=== PATIENT | female | born 1980 | race Caucasian/White ===

== ENCOUNTER 2016-10-22 13:39 | Outpatient (CLI) | payer MEDICAID ==
--- NOTE | 2016-10-22 16:42 | XRAY Report ---
TWO VIEW THORACIC SPINE: 10/22/2016 CLINICAL INDICATION: Back pain. Frontal and lateral views of the thoracic spine demonstrate normal height and alignment of the verteb ral bodies. The disk spaces are preserved. There is no evidence of fracture. No paraspinal hematom a is seen. IMPRESSION: NORMAL THORACIC SPINE. JOB #: [id number] EXT JOB #:[id number]
--- NOTE | 2016-10-22 16:45 | XRAY Report ---
THREE VIEW CERVICAL SPINE: 10/22/2016 CLINICAL INDICATION: Pain. AP, lateral, odontoid views of the cervical spine demonstrate straightening of the normal cervical lo rdosis. There is no evidence of fracture or subluxation. The prevertebral soft tissues are unremark able. IMPRESSION: STRAIGHTENING OF THE NORMAL CERVICAL LORDOSIS. NO EVIDENCE OF FRACTURE. JOB #: [id number] EXT JOB #:[id number]
== END 2016-10-22 13:40 | disposition home or self-care (01) ==
LOC: DI.N 13:39
PROVIDERS: ATTEND Family Medicine
DX: M54.9 Dorsalgia, unspecified (principal)
CPT/HCPCS: 72040; 72070

== ENCOUNTER 2017-05-04 12:44 | Outpatient (CLI) | payer MEDICAID ==
--- NOTE | 2017-05-05 11:51 | MRI Report ---
EXAM: MRI CERVICAL SPINE WITHOUT CONTRAST EXAM DATE: 05/04/2017 01:24 PM. CLINICAL HISTORY: Cervicalgia. COMPARISONS: None. TECHNIQUE: Multiplanar, multisequence T1-weighted and fluid-sensitive sequences of the cervical spine without contrast. Other: None. FINDINGS: Neurologic Structures: The visualized posterior fossa structures are unremarkable. No signal abnormal ity in the visualized spinal cord. Alignment: No scoliosis or spondylolisthesis. Bone Marrow: Mild Modic type I degenerative endplate signal changes at C3-C4, C5-C6 and C6-C7 levels. Interspace Levels/Facets: C1-C2: Unremarkable. C2-C3: Unremarkable. C3-C4: Mild degenerative disk disease. Minimal to mild central stenosis. Ventral thecal sac indentati on by a shallow posterior disk bulge. No cord compression. Minimal foraminal stenosis from uncinate p rocess hypertrophy without evidence for nerve root impingement. C4-C5: Slightly narrowed disk space. Minimal broad-based bulge. No significant stenosis. C5-C6: Mild degenerative disk disease. Minimal central stenosis from a broad-based posterior disk pro trusion that indents the ventral thecal sac. No cord displacement or compression. Patent right forame n. Mild to moderate foraminal stenosis on the left from intraforaminal disk protrusion with osteophyt e. C6-C7: Minimally narrowed disk space. Shallow broad-based bulge. No significant stenosis. Negligible marginal spurring. C7-T1: Unremarkable. Musculature: Normal. No edema or fatty atrophy. Other: No focal prevertebral edema. IMPRESSION: 1. No significant central stenosis, cord compression or focal cord lesion. 2. Multilevel degenerative disk disease, mild ventral thecal sac indentation from posterior broad-bas ed disk protrusions is most notable at C3-C4 and C5-C6 levels. 3. Degenerative foraminal stenosis is most prominent on the left at the C5-C6 level from asymmetric l eft intraforaminal disk protrusion with osteophyte. [facility] Referring Provider Line: [phone] SITE ID: [id number]
== END 2017-05-04 12:45 | disposition home or self-care (01) ==
LOC: DI 12:44
PROVIDERS: ATTEND Family Medicine
DX: M50.30 Other cervical disc degeneration, unspecified cervical region (principal); M25.78 Osteophyte, vertebrae; M50.21 Other cervical disc displacement, high cervical region
CPT/HCPCS: 72141

== ENCOUNTER 2017-07-25 08:00 | Outpatient (CLI) | payer MEDICAID ==
[2017-07-25 18:51] LABS: BASOPHILS % (AUTO) 0.7 %; EOSINOPHILS % (AUTO) 0.7 %; HGB - HEMOGLOBIN 14.2 g/dL (12.0-16.0); LYMPHOCYTES # (AUTO) 2.1 10^3/uL (1.5-3.5); LYMPHOCYTES % (AUTO) 35.8 %; MEAN CORPUSCULAR HEMOGLOBIN 33.1 pg (27.0-31.0); MEAN CORPUSCULAR HGB CONC 33.5 g/dL (32.0-36.0); MEAN CORPUSCULAR VOLUME 98.9 fL (81.0-99.0); MEAN PLATELET VOLUME 8.6 fL (7.9-10.8); MONOCYTES # (AUTO) 0.4 10^3/uL (0.0-1.0); NEUTROPHILS # (AUTO) 3.3 10^3/uL (1.5-6.6); NEUTROPHILS % (AUTO) 55.8 %; PLT - PLATELET COUNT 317 10^3/uL (130-450); RED CELL DISTRIBUTION WIDTH 12.6 % (12.0-15.0); WHITE BLOOD COUNT 5.9 x10^3/uL (4.8-10.8)
[2017-07-25 19:22] LABS: ALBUMIN 4.5 g/dL (3.2-5.5); ALBUMIN/GLOBULIN RATIO 1.6 (1.0-2.2); BILIRUBIN,TOTAL 0.4 mg/dL (0.2-1.0); CALCIUM 9.5 mg/dL (8.5-10.3); CREATININE 0.8 mg/dL (0.4-1.0); TOTAL PROTEIN 7.4 g/dL (6.7-8.2)
[2017-07-25 19:52] LABS: THYROID STIMULATING HORMONE 0.94 uIU/mL (0.34-5.60)
[2017-07-25 19:59] LABS: FERRITIN 384.2 ng/mL (11.0-306.8)
[2017-07-25 20:22] LABS: HB2 TOTAL 15.8 g/dL; HEMOGLOBIN A1C 0.46 g/dL; HEMOGLOBIN A1C % 4.8 % (4.6-6.2)
== END 2017-07-25 08:01 | disposition home or self-care (01) ==
LOC: LAB.N 08:00
PROVIDERS: ATTEND Registered Nurse
DX: R53.82 Chronic fatigue, unspecified (principal); E55.9 Vitamin D deficiency, unspecified
CPT/HCPCS: 36415; 80053; 82306; 82607; 82728; 83036; 84443; 85025

== ENCOUNTER 2017-11-29 08:00 | Outpatient (CLI) | payer MEDICAID | END 2017-11-29 08:01 | LOC: LAB.N 08:00 | PROVIDERS: ATTEND Registered Nurse | DX: E55.9 Vitamin D deficiency, unspecified (principal) | CPT/HCPCS: 36415; 82306 ==

== ENCOUNTER 2018-04-28 14:21 | Outpatient (CLI) | payer MEDICAID ==
[2018-04-28] MEDS ORDERED: GADOBUTROL 10 MMOL/10 ML VIAL ONE (14:41)
[2018-04-28] MEDS ORDERED: GADOBUTROL 10 MMOL/10 ML VIAL IVP ONE (16:27)
--- NOTE | 2018-04-30 11:31 | MRI Report ---
Reason: BACK PAIN Procedure Date: 04/28/2018 Accession Number: [id number] / [id number] Procedure: MRI - Thoracic Spine W/WO CPT Code: FULL RESULT: EXAM: MRI THORACIC SPINE WITHOUT AND WITH CONTRAST EXAM DATE: 04/28/2018 04:09 PM. CLINICAL HISTORY: Back pain, bilateral arm numbness. COMPARISONS: Two-view thoracic spine 10/22/2016. TECHNIQUE: Multiplanar, multisequence T1-weighted and fluid-sensitive sequences of the thoracic spine from C7 to L1 before and after administration of intravenous contrast. Other: None. IV contrast: . FINDINGS: Spinal Cord: No signal abnormality in the visualized spinal cord. Alignment: There is no spondylolisthesis. Bone Marrow: An acute enhancing Schmorl's node is noted at the superior C7 endplate. An osseous hemangioma is incidentally noted in the T8 vertebral body, benign finding. No abnormal bone marrow edema or enhancement is seen in the thoracic spine. Small chronic Schmorl's nodes are noted at T10-T11, T11-T12, and T12-L1. Disk Levels/Facets: Small disk herniations are noted at multiple levels in the thoracic spine including T2-T3, T6-T7, T7-T8, T8-T9, and T9-T10. They result in mild spinal canal stenosis at these levels without spinal cord impingement. The foramina are widely patent at all thoracic levels. Spinal Canal: No enhancing masses within the spinal canal. No epidural abscess. Musculature: Normal. No edema, enhancement, or fatty atrophy. Other: The visualized lungs, mediastinum, and abdominal cavity are unremarkable. IMPRESSION: 1. Normal thoracic spinal cord signal intensity. 2. Mild multilevel degenerative changes without high-grade spinal canal or foraminal stenosis. 3. No abnormal enhancement to suggest thoracic spinal infection or tumor. 4. Acute Schmorl's node at the superior C7 endplate. [facility]
== END 2018-04-28 14:22 | disposition home or self-care (01) ==
LOC: DI 14:21
PROVIDERS: ATTEND Registered Nurse
DX: M51.24 Other intervertebral disc displacement, thoracic region (principal); M48.04 Spinal stenosis, thoracic region
CPT/HCPCS: 72157; A9585

== ENCOUNTER 2018-08-10 11:18 | Outpatient (CLI) | payer MEDICAID ==
[2018-08-10 18:40] LABS: BASOPHILS # (AUTO) 0.1 10^3/uL (0.0-0.1); BASOPHILS % (AUTO) 0.8 %; EOSINOPHILS # (AUTO) 0.2 10^3/uL (0.0-0.7); EOSINOPHILS % (AUTO) 3.2 %; HGB - HEMOGLOBIN 15.3 g/dL (12.0-16.0); LYMPHOCYTES % (AUTO) 43.7 %; MEAN CORPUSCULAR HEMOGLOBIN 33.7 pg (27.0-31.0); MEAN CORPUSCULAR HGB CONC 33.3 g/dL (32.0-36.0); MEAN PLATELET VOLUME 8.9 fL (7.9-10.8); MONOCYTES # (AUTO) 0.5 10^3/uL (0.0-1.0); NEUTROPHILS # (AUTO) 3.1 10^3/uL (1.5-6.6); NEUTROPHILS % (AUTO) 45.3 %; PLT - PLATELET COUNT 323 10^3/uL (130-450); RED BLOOD COUNT 4.53 10^6/uL (4.20-5.40); RED CELL DISTRIBUTION WIDTH 13.1 % (12.0-15.0); WHITE BLOOD COUNT 6.8 x10^3/uL (4.8-10.8)
[2018-08-10 20:34] LABS: ALBUMIN 4.3 g/dL (3.2-5.5); ALBUMIN/GLOBULIN RATIO 1.6 (1.0-2.2); ALKALINE PHOSPHATASE 54 IU/L (42-121); ALT ALANINE AMINOTRANSFERASE 29 IU/L (10-60); AST ASPARTATE AMINOTRANSFERASE 24 IU/L (10-42); BILIRUBIN,TOTAL 0.4 mg/dL (0.2-1.0); BUN - BLOOD UREA NITROGEN 12 mg/dL (6-20); CALCIUM 9.6 mg/dL (8.5-10.3); CARBON DIOXIDE - CO2 20 mmol/L (21-32); CHLORIDE 110 mmol/L (101-111); CHOL/HDL RATIO 3.8 (<4.4); CHOLESTEROL 184 mg/dL; GFR - MDRD 63 (>89); GLUCOSE 94 mg/dL (70-100); HDL CHOLESTEROL 48 mg/dL; LDL CHOLESTEROL,CALCULATED 111 mg/dL; LDL/HDL RATIO 2.3 (<4.4); SODIUM 140 mmol/L (135-145); VLDL CHOLESTEROL 25 mg/dL
== END 2018-08-10 11:19 | disposition home or self-care (01) ==
LOC: LAB.WCP 11:18
PROVIDERS: ATTEND Nurse Practitioner
DX: Z13.228 Encounter for screening for other metabolic disorders (principal); Z13.29 Encounter for screening for other suspected endocrine disorder; Z13.220 Encounter for screening for lipoid disorders; Z79.899 Other long term (current) drug therapy
CPT/HCPCS: 36415; 80053; 80061; 83721; 84443; 85025

== ENCOUNTER 2019-03-27 15:26 | Outpatient (CLI) | payer MEDICAID ==
--- NOTE | 2019-03-27 17:05 | Ultrasound Report ---
Reason: LEG PAIN RT Procedure Date: 03/27/2019 Accession Number: [id number] / [id number] Procedure: US - Duplex Ext Veins Right CPT Code: Final Report FULL RESULT: EXAM: RIGHT LOWER EXTREMITY VENOUS ULTRASOUND. EXAM DATE: 03/27/2019 04:26 PM. CLINICAL HISTORY: Leg pain, right. COMPARISON: None. TECHNIQUE: Real-time sonographic vascular imaging was performed by the knowledge architect through the lower extremity utilizing both color-flow and Doppler spectral analysis. Multiple community representative static images were saved for review. FINDINGS: Common Femoral Vein (CFV): Normal. CFV-GSV Junction: Normal. Profunda Femoral Vein (PFV): Normal. Femoral Vein (FV) Prox: Normal. Femoral Vein (FV) Mid: Normal. Femoral Vein (FV) Dist: Normal. Popliteal Vein: Normal. Posterior Tibial Veins: Normal. Peroneal Veins: Diminished spontaneous flow and augmentation. Other: None. IMPRESSION: 1. Diminished spontaneous flow and augmentation of the peroneal calf veins. Partial thrombosis cannot be differentiated from slow flow. 2. No evidence of DVT of the popliteal vein, posterior tibial vein or proximal veins. [facility] The call report notification system was initiated by Dr. Benjamin Seals at 04:52 PM on 03/27/2019. The above call report findings were discussed with Jacqueline Baires by Dr. Benjamin Seals at 05:03 PM on 03/27/2019.
== END 2019-03-27 15:27 | disposition home or self-care (01) ==
LOC: DI 15:26
PROVIDERS: ATTEND Nurse Practitioner
DX: M79.604 Pain in right leg (principal)

== ENCOUNTER 2019-06-27 09:22 | Outpatient (CLI) | payer MEDICAID ==
[2019-06-27 12:12] LABS: BASOPHILS % (AUTO) 0.8 %; EOSINOPHILS # (AUTO) 0.1 10^3/uL (0.0-0.7); EOSINOPHILS % (AUTO) 1.9 %; HGB - HEMOGLOBIN 15.1 g/dL (12.0-16.0); LYMPHOCYTES # (AUTO) 1.7 10^3/uL (1.5-3.5); LYMPHOCYTES % (AUTO) 31.5 %; MEAN CORPUSCULAR HEMOGLOBIN 33.6 pg (27.0-31.0); MEAN CORPUSCULAR HGB CONC 33.4 g/dL (32.0-36.0); MEAN CORPUSCULAR VOLUME 100.7 fL (81.0-99.0); MEAN PLATELET VOLUME 10.9 fL (7.9-10.8); MONOCYTES # (AUTO) 0.5 10^3/uL (0.0-1.0); MONOCYTES % (AUTO) 9.7 %; NEUTROPHILS # (AUTO) 2.9 10^3/uL (1.5-6.6); NEUTROPHILS % (AUTO) 55.7 %; PLT - PLATELET COUNT 315 10^3/uL (130-450); RED BLOOD COUNT 4.49 10^6/uL (4.20-5.40); RED CELL DISTRIBUTION WIDTH 12.6 % (12.0-15.0); WHITE BLOOD COUNT 5.2 x10^3/uL (4.8-10.8)
[2019-06-27 12:25] LABS: ALBUMIN 4.2 g/dL (3.2-5.5); ALBUMIN/GLOBULIN RATIO 1.5 (1.0-2.2); BILIRUBIN,TOTAL 0.7 mg/dL (0.2-1.0); CALCIUM 9.1 mg/dL (8.5-10.3)
== END 2019-06-27 23:59 | disposition home or self-care (01) ==
LOC: LAB.WCP 09:22
PROVIDERS: ATTEND Nurse Practitioner Family
DX: K62.5 Hemorrhage of anus and rectum (principal)
CPT/HCPCS: 36415; 80053; 85025

== ENCOUNTER 2019-07-16 12:28 | Outpatient (CLI) | payer MEDICAID ==
--- NOTE | 2019-07-16 17:36 | Ultrasound Report ---
Reason: HX OF BLOOD CLOTS Procedure Date: 07/16/2019 Accession Number: [id number] / [id number] Procedure: US - Duplex Ext Veins Right CPT Code: Final Report FULL RESULT: EXAM: RIGHT LOWER EXTREMITY VENOUS ULTRASOUND EXAM DATE: 07/16/2019 12:58 PM. CLINICAL HISTORY: HX OF BLOOD CLOTS. COMPARISON: DUPLEX EXT VEINS RIGHT 03/27/2019 3:54 PM. TECHNIQUE: Real-time sonographic vascular imaging was performed by the colon therapist through the lower extremity utilizing both color-flow and Doppler spectral analysis. Multiple community engagement representative static images were saved for review. FINDINGS: Common Femoral Vein (CFV): Normal. CFV-GSV Junction: Normal. Profunda Femoral Vein (PFV): Normal. Femoral Vein (FV) Prox: Normal. Femoral Vein (FV) Mid: Normal. Femoral Vein (FV) Dist: Normal. Popliteal Vein: Normal. Posterior Tibial Veins: Normal. Peroneal Veins: Normal. Contralateral Side CFV: Normal. Other: None. IMPRESSION: No evidence for deep venous thrombosis. [facility]
== END 2019-07-16 12:29 | disposition home or self-care (01) ==
LOC: DI 12:28
PROVIDERS: ATTEND Nurse Practitioner
DX: Z86.718 Personal history of other venous thrombosis and embolism (principal)

== ENCOUNTER 2020-08-07 08:00 | Outpatient (CLI) | payer MEDICAID ==
[2020-08-08 19:16] LABS: BACTERIAL VAGINOSIS DNA NEGATIVE (NEGATIVE); CANDIDA GLABRATA DNA NEGATIVE (NEGATIVE); CANDIDA GROUP DNA NEGATIVE (NEGATIVE); CANDIDA KRUSEI DNA NEGATIVE (NEGATIVE); TRICHOMONAS VAGINALIS DNA NEGATIVE (NEGATIVE)
== END 2020-08-07 23:59 | disposition home or self-care (01) ==
LOC: LAB.R 08:00
PROVIDERS: ATTEND Obstetrics & Gynecology
DX: B37.2 Candidiasis of skin and nail (principal)
CPT/HCPCS: 87661; 87801

== ENCOUNTER 2020-10-06 11:02 | Outpatient (CLI) | payer MEDICAID ==
[2020-10-06 11:37] LABS: GTT GLUCOSE,FASTING 114 mg/dL (70-100)
[2020-10-06 11:41] LABS: ALBUMIN 4.8 g/dL (3.2-5.5); ALBUMIN/GLOBULIN RATIO 1.5 (1.0-2.2); BILIRUBIN,TOTAL 0.6 mg/dL (0.2-1.0); CALCIUM 9.1 mg/dL (8.5-10.3); POTASSIUM 3.7 mmol/L (3.5-5.0); TOTAL PROTEIN 7.9 g/dL (6.7-8.2)
[2020-10-06 12:14] LABS: ESTIMATED AVERAGE GLUCOSE 85 mg/dL (70-100); HEMOGLOBIN A1c% 4.6 % (4.27-6.07)
== END 2020-10-06 11:03 | disposition home or self-care (01) ==
LOC: LAB 11:02
PROVIDERS: ATTEND Obstetrics & Gynecology
DX: B37.2 Candidiasis of skin and nail (principal); E88.81 Metabolic syndrome and other insulin resistance
CPT/HCPCS: 36415; 80053; 82951; 83036

== ENCOUNTER 2022-01-08 20:43 | Outpatient (CLI) | payer MEDICAID ==
--- NOTE | 2022-01-09 18:20 | Ultrasound Report ---
PROCEDURE: Pelvic w/Transvaginal INDICATIONS: PELVIC PAIN TECHNIQUE: Real-time scanning was performed of the pelvic organs, with image documentation. Additional endovagi nal scanning was necessary due to incomplete visualization of the adnexal and endometrial structures by transabdominal scanning. COMPARISON: None. FINDINGS: Uterus: Uterus is anteverted and normal in size at 5 x 2.3 x 3.4 cm. The myometrium is mildly heter ogeneous. No fibroids are seen. The endometrium measures 4 mm in combined thickness. Ovaries: The right ovary measures 2.6 x 2.2 x 2.4 cm, with a calculated ovarian volume of 7 cc. The left ovary measures 2.2 x 1.8 x 3.2 cm, with a calculated ovarian volume of 6.5 cc. The ovaries hav e a normal sonographic appearance. Less than 12 follicles can be seen in each ovary. No adnexal mas ses are seen. Other: No pathologic free abdominal or pelvic fluid. IMPRESSION: Unremarkable pelvic ultrasound, without a cause of the patient's pain identified. Reviewed by: James Deleon MD on 01/09/2022 5:19 PM VU Approved by: James Deleon MD on 01/09/2022 5:19 PM VU Station ID: [id number]
== END 2022-01-08 20:44 | disposition home or self-care (01) ==
LOC: DI 20:43
PROVIDERS: ATTEND Nurse Practitioner Obstetrics & Gynecology
DX: R10.2 Pelvic and perineal pain (principal); N94.12 Deep dyspareunia

== ENCOUNTER 2023-05-24 08:00 | Outpatient (CLI) | payer MEDICAID | END 2023-05-24 23:59 | disposition home or self-care (01) | LOC: LAB.R 08:00 | PROVIDERS: ATTEND Nurse Practitioner | DX: L30.4 Erythema intertrigo (principal) | CPT/HCPCS: 87070; 87077; 87181; 87205 ==

== ENCOUNTER 2023-07-21 08:00 | Outpatient (CLI) | payer MEDICAID | END 2023-07-21 23:59 | disposition home or self-care (01) | LOC: LAB.R 08:00 | PROVIDERS: ATTEND Nurse Practitioner | DX: Z09 Encounter for follow-up examination after completed treatment for conditions other than malignant neoplasm (principal); Z86.14 Personal history of Methicillin resistant Staphylococcus aureus infection | CPT/HCPCS: 87070; 87205 ==

== ENCOUNTER 2023-11-14 08:56 | Outpatient (CLI) | payer MEDICAID ==
[2023-11-14 12:09] LABS: ALBUMIN 4.4 g/dL (3.2-5.5); ALBUMIN/GLOBULIN RATIO 1.8 (1.0-2.2); BILIRUBIN,TOTAL 0.5 mg/dL (0.2-1.0); CALCIUM 9.9 mg/dL (8.5-10.3); CREATININE 0.8 mg/dL (0.6-1.3); POTASSIUM 3.4 mmol/L (3.5-4.5); TOTAL PROTEIN 6.9 g/dL (6.4-8.9)
[2023-11-14 12:16] LABS: LITHIUM 0.42 mmol/L
== END 2023-11-14 08:57 | disposition home or self-care (01) ==
LOC: LAB.N 08:56
PROVIDERS: ATTEND Student in an Organized Health Care Education/Training Program
DX: F60.3 Borderline personality disorder (principal); F41.1 Generalized anxiety disorder; F41.0 Panic disorder [episodic paroxysmal anxiety]
CPT/HCPCS: 36415; 80053; 80178

== ENCOUNTER 2023-11-21 10:53 | Observation (INO) | payer MEDICAID ==
[2023-11-21 11:48] LABS: BASOPHILS # (AUTO) 0.1 10^3/uL (0.0-0.1); BASOPHILS % (AUTO) 0.7 %; EOSINOPHILS # (AUTO) 0.3 10^3/uL (0.0-0.7); EOSINOPHILS % (AUTO) 1.9 %; HCT - HEMATOCRIT 45.2 % (37.0-47.0); HGB - HEMOGLOBIN 14.9 g/dL (12.0-16.0); LYMPHOCYTES # (AUTO) 3.7 10^3/uL (1.5-3.5); LYMPHOCYTES % (AUTO) 22.9 %; MEAN CORPUSCULAR HEMOGLOBIN 34.3 pg (27.0-31.0); MEAN CORPUSCULAR VOLUME 103.9 fL (81.0-99.0); MEAN PLATELET VOLUME 9.6 fL (7.9-10.8); MONOCYTES # (AUTO) 1.3 10^3/uL (0.0-1.0); MONOCYTES % (AUTO) 8.2 %; NEUTROPHILS # (AUTO) 10.5 10^3/uL (1.5-6.6); NEUTROPHILS % (AUTO) 65.7 %; PLT - PLATELET COUNT 416 10^3/uL (130-450); RED BLOOD COUNT 4.35 10^6/uL (4.20-5.40); RED CELL DISTRIBUTION WIDTH 12.5 % (12.0-15.0); WHITE BLOOD COUNT 15.9 x10^3/uL (4.8-10.8)
[2023-11-21 12:08] LABS: ALBUMIN 4.3 g/dL (3.2-5.5); ALBUMIN/GLOBULIN RATIO 1.9 (1.0-2.2); BILIRUBIN,TOTAL 0.5 mg/dL (0.2-1.0); CALCIUM 10.1 mg/dL (8.5-10.3); CREATININE 0.9 mg/dL (0.6-1.3); POTASSIUM 3.9 mmol/L (3.5-4.5); TOTAL PROTEIN 6.6 g/dL (6.4-8.9)
--- NOTE | 2023-11-21 13:39 | ED Physician Documentation ---
PD HPI ABD PAIN - Stated complaint Stated Complaint: GI - Chief complaint Chief Complaint: Abd Pain - History obtained from History obtained from: Patient - History of Present Illness Timing - onset: How many days ago (10-12) Timing - duration: Days (The patient says she had had decreased stool output and feeling constipated about 10 to 12 days ago with occasional small amounts of liquid stool out after using stool softeners. No stool out in the last several days with abdominal bloating cramps pain and nausea. Emesis x 2 last evening.) Quality: Cramping, Aching, Fullness/distended, Pain Location: All over / everywhere Radiation: No: Lower back Improved by: Laying still Worsened by: Eating, Moving Associated symptoms: Nausea, Constipation. No: Fever, Diarrhea, Melena Similar symptoms before: No diagnosis (Has seen gastroenterology with upper and lower scopes in the last year or so. Diagnosed with IBS. Does take stool softeners intermittently though more regularly lately. Recurring constipation in the past but never as severe as this.) Recently seen: Surgery (She had gallbladder removal end of September and had recovered well from that but states her stools have been more constipated since that time, the last 6 weeks.) Review of Systems Constitutional: denies: Fever, Chills, Myalgias GI: reports: Abdominal Pain, Nausea, Constipation. 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 : None HEENT: None Psych: Depression, Anxiety, Panic attacks Musculoskeletal: None, Chronic back pain Derm: None - Past Surgical History Past Surgical History: Yes General: Cholecystectomy, Appendectomy, Colonoscopy - Present Medications Home Medications: Ambulatory Orders Medication Instructions Recorded Confirmed Fluticasone [Flonase] 1 sprays JOHN DAILY 02/18/14 11/21/23 Cetirizine [ZyrTEC] 10 mg PO DAILY 11/21/23 11/21/23 Cyclobenzaprine [Flexeril] 10 mg PO DAILY PM PRN 11/21/23 11/21/23 Famotidine [Pepcid] 20 mg PO BID 11/21/23 11/21/23 [place] ER [Lithobid] 600 mg PO QD 11/21/23 11/21/23 Propranolol [Inderal] 10 mg PO BID 11/21/23 11/21/23 Risperidone [Risperdal] 0.5 mg PO HS 11/21/23 11/21/23 Topiramate [Topamax] 50 mg PO DAILY 11/21/23 11/21/23 Topiramate [Topamax] 75 mg PO HS 11/21/23 11/21/23 Verapamil ER [Calan SA] 180 mg PO DAILY PM 11/21/23 11/21/23 cloNIDine HCL [Clonidine HCl] 0.2 mg PO HS 11/21/23 11/21/23 - Allergies Allergies/Adverse Reactions: Allergies Allergy/AdvReac Type Severity Reaction Status Date / Time red dye Allergy Intermediate Left eye Verified 11/21/23 11:17 swelling adhesive tape AdvReac Mild Skin Verified 11/21/23 11:17 irritation - Social History Does the pt smoke?: No Smoking Status: Former smoker Does the pt drink ETOH?: No Does the pt have substance abuse?: No - Immunizations Immunizations are current?: Yes - POLST Patient has POLST: No PD ED PE NORMAL - Vitals Vital signs reviewed: Yes - General General: Alert and oriented X 3, Well developed/nourished, Other (appears in pain due to general abd bloating, improved with pain meds. ) - Neck Neck: Supple, no meningeal sign, No adenopathy - Cardiac Cardiac: RRR, No murmur - Respiratory Respiratory: Clear bilaterally - Abdomen Abdomen: No organomegaly, Other (The patient does have general tenderness with distention with more tender to the left abdomen than right. Previous cholecystectomy laparoscopic scars are healed without any signs of infection.). No: Normal bowel sounds (increased diffusely) - Rectal Rectal: Other (external normal. No impaction palpable to the length of my finger. ) - Derm Derm: Normal color, Warm and dry - Extremities Extremities: No edema, No calf tenderness / cord - Neuro Neuro: Alert and oriented X 3, No motor deficit, Normal speech - Psych Psych: No: Normal affect (somewhat flat. ) Results - Vitals Vitals: Vital Signs - 24 hr 11/21/23 11/21/23 11/21/23 11:18 13:53 16:06 Temperature 36.1 C L Heart Rate 73 60 63 Respiratory 18 16 16 Rate Blood Pressure 109/82 H 110/85 H 140/96 H O2 Saturation 100 97 97 11/21/23 17:59 Temperature 36.2 C L Heart Rate 66 Respiratory 14 Rate Blood Pressure 104/68 O2 Saturation 94 Oxygen O2 Source Room air - Labs Labs: Laboratory Tests 11/21/23 11/21/23 11/21/23 11:44 11:44 14:45 WBC 15.9 H RBC 4.35 Hgb 14.9 Hct 45.2 MCV 103.9 H MCH 34.3 H MCHC 33.0 RDW 12.5 Plt Count 416 MPV 9.6 Neut # (Auto) 10.5 H Lymph # (Auto) 3.7 H Charlton # (Auto) 1.3 H Eos # (Auto) 0.3 Baso # (Auto) 0.1 Absolute Nucleated RBC 0.00 Nucleated RBC % 0.0 Sodium 136 Potassium 3.9 Chloride 108 Carbon Dioxide 24 Anion Gap 4.0 L BUN 11 Creatinine 0.9 Estimated GFR (MDRD) 69 L Glucose 103 Calcium 10.1 Total Bilirubin 0.5 AST 53 H ALT 60 Alkaline Phosphatase 50 Total Protein 6.6 Albumin 4.3 Globulin 2.3 Albumin/Globulin Ratio 1.9 Lipase 41 Urine Color YELLOW Urine Clarity CLEAR Urine pH 6.0 Ur Specific [place] <=1.005 Urine Protein NEGATIVE Urine Glucose (UA) NEGATIVE Urine Ketones NEGATIVE Urine Occult Blood NEGATIVE Urine Nitrite NEGATIVE Urine Bilirubin NEGATIVE Urine Urobilinogen 0.2 (NORMAL) Ur Leukocyte Esterase NEGATIVE Ur Microscopic Review NOT INDICATED Urine Culture Comments NOT INDICATED Urine HCG, Qual NEGATIVE - Rads (name of study) abd/pelvic CT Relevant Findings:: Prelim report reviewed (bowel obstruction pattern above a descending colon impacted stool. suspicious for stricture. ), EMP independent interpretation of test PD Medical Decision Making - ED course Complexity details: reviewed old records (Colonoscopy report from [facility] by Dr. Edson walsh gastroenterology showed no evidence of polyps or mass lesions performed on 10/02/2021), re-evaluated patient (No stool out after enema and lactulose p.o.Less pain after IV medicines.), considered differential (Patient with chronic constipation issues but much more so the past 10 to 12 days with minimal stool out and now none for several days. Having distention nausea cramps and had vomited some last night.), d/w patient, d/w accounting policy consultant (Spoke with on-call surgery, Dr. Jackman who advised treating medicine side with repeated enemas and more lactulose as if prepping for scope. She can consult if still not improving for potential colonoscopy.) ED course: The patient with history of irritable bowel and recurring constipation takes regular stool softeners. Has had no stool output or minimal 6 watery to soft stool over the last 10 to 12 days and then none for several days with a concurrent up obstruction and symptoms of distention, crampy pain, nausea and 2 episodes of vomiting last night. Comes in with significant cramping pain today. Given the degree of the discomfort as well as some elevated white count of 15,000, I felt it appropriate to image with a CT scan. This showed a obstipation pattern with a large to small bowel obstruction pattern with air- fluid levels and distended diameter. There is a localized area of stool blockage on the descending colon. Concern or suspicious for stricture though the patient had had a colonoscopy on 10/02/2021 without any abnormal findings. The patient has not had improvement in her stool output as of yet after enema and MiraLAX and lactulose. We can repeat the enema at Dr. Ying advice. However I feel the patient needs to have more resolution of this obstruction and I do not feel appropriate for discharge under. She had already been trying several things at home. Departure - Departure Disposition: ED Place in Observation Clinical Impression: Obstipation, Abdominal pain, diffuse, Constipation Condition: Stable Record reviewed to determine appropriate education?: Yes Forms: PCP List
[2023-11-21] MEDS ORDERED: iohexoL-300 100 ML VIAL ONE (14:59)
[2023-11-21 15:00] LABS: BILIRUBIN,URINE NEGATIVE (NEGATIVE); GLUCOSE, URINE (UA) NEGATIVE (NEGATIVE); KETONES,URINE (UA) NEGATIVE (NEGATIVE); LEUKOCYTE ESTERASE, URINE NEGATIVE (NEGATIVE); NITRITE,URINE NEGATIVE (NEGATIVE); OCCULT BLOOD,URINE NEGATIVE (NEGATIVE); PROTEIN,URINE NEGATIVE (NEGATIVE); UROBILINOGEN,URINE 0.2 (NORMAL) E.U./dL (NORMAL)
[2023-11-21 15:02] LABS: CLARITY,URINE CLEAR (CLEAR); HCG UR QUAL NEGATIVE
[2023-11-21] MEDS: KETOROLAC 15 MG/ML VIAL IVP STA (15:18)
[2023-11-21] MEDS: ONDANSETRON 4 MG/2 ML VIAL IVP STA (15:18)
[2023-11-21] MEDS: LACTULOSE 10 GM /15 ML UDC PO STA (15:18)
[2023-11-21] MEDS: iohexoL-300 100 ML VIAL IVP ONE (15:18)
[2023-11-21] MEDS: HYDROmorphone 0.5 MG/0.5 ML SYRINGE IVP STA (15:18)
[2023-11-21] MEDS: SODIUM CHLORIDE 0.9% 1,000 ML IV STA (15:19)
--- NOTE | 2023-11-21 15:53 | CT Report ---
PROCEDURE: Abdomen/Pelvis W INDICATIONS: general abd pain, distended. constipated. CONTRAST: 100ML [id number] TECHNIQUE: After the administration of intravenous contrast, a CT scan of the abdomen and pelvis was performed. Images were recorded and evaluated at appropriate window settings. Reformats: coronal and sagittal. F or radiation dose reduction, the following was used: automated exposure control, adjustment of mA and /or kV according to patient size. COMPARISON: None. FINDINGS: Image quality: Diagnostic. Lower chest: Unremarkable. Liver: No solid mass. Gallbladder: Presumed surgically absent. Biliary tree: No intrahepatic or extrahepatic dilation, accounting for age. Spleen: No splenomegaly. Pancreas: No pancreatic ductal dilation. Adrenals: No adrenal nodule. Kidneys and ureters: No hydronephrosis. No renal cystic lesion which requires follow up. No solid mas s. Stomach, bowel and peritoneum: There is a question of a stricture of the mid to distal descending col on. Above this point, there is a stool ball present filling the lumen, and the colon is diffusely dil ated proximal to the stool ball. Immediately distal to the suspected stricture the colon is narrow, m easuring 1.5 cm with mildly prominent wall. Proximal to the stricture and stool ball, the proximal de scending colon is 4.8 cm. The transverse colon measures up to 6.2 cm. The cecum measures up to 8.0 cm . There is no obvious associated mass.. No pathologic free fluid. Lymph nodes: No central or retroperitoneal adenopathy. Vessels: No infrarenal aortic aneurysm. Patent portal vein. PELVIS Reproductive organs: Unremarkable. Bladder: No abnormal wall thickening, accounting for underdistention. Pelvic lymph nodes: No pelvic adenopathy by size criteria. Bones: No aggressive osseous abnormality. Other: No significant ventral or inguinal hernia. IMPRESSION: A mid to distal descending colonic stricture is suspected, with a large stool ball immediately above the area of narrowing and diffuse dilatation of the colon proximal to this location. There is no asso ciated mass identified. Reviewed by: Owen Rivera MD on 11/21/2023 3:51 PM PDT Approved by: Owen Rivera MD on 11/21/2023 3:51 PM PDT Station ID: [id number]
[2023-11-21] MEDS: MINERAL OIL ENEMA 133 ML BOTTLE RC STA (16:48)
[2023-11-21] MEDS: HYDROmorphone 1 MG/ML CARPUJECT IVP STA (16:48)
--- NOTE | 2023-11-21 18:41 | CONSULTATION NOTE ---
Referring Provider Name of Referring Provider:: ED (Alegria) Consult Date: 11/21/23 Chief Complaint - Chief Complaint Chief Complaint: "I can't poop" History of Present Illness - History Obtained From Records Reviewed: yes, though most records are at [facility] per patient History obtained from: ED provider, patient - History of Present Illness HPI Comment/Other: Patient endorses a longstanding history of constipation for which she is followed by a conference services coordinator at [facility]. She takes a medication called Ibsrella, which she self adjust the dose, currently taking 1-2 times per week because it often gives her diarrhea. The patient had her gallbladder removed on October 06, and since that time states her constipation has been worse. She denies any bowel movement for the last 2 weeks and also denies passing gas during that time. She has tried a single dose of MiraLAX, a couple of doses of Colace, and taken her Ibsrella a couple of times in the last 2 weeks. For worsening abdominal discomfort, she came to the emergency department today. She does endorse nausea and an episode of vomiting yesterday. The patient states she had a normal colonoscopy at [facility] last year. These records are unavailable to me at this time. Imaging indicates mild dilation of the colon and question of stricture in the descending colon with a large stool ball above the area of concern. An enema has been given in the emergency department without results at this time.For possible colonic obstruction, I am consulted. 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 : reports: None HEENT: reports: None Psych: reports: Depression, Anxiety, Panic attacks Musculoskeletal: reports: None, Chronic back pain Derm: reports: None MRSA Hx?: Yes - Past Surgical History General: reports: Cholecystectomy (10/07/23), Appendectomy, Colonoscopy - POLST Patient has POLST: No Meds/Allgy - Home Medications Home Medications: Ambulatory Orders Medication Instructions Recorded Confirmed Fluticasone [Flonase] 1 sprays JOHN DAILY 02/18/14 11/21/23 Cetirizine [ZyrTEC] 10 mg PO DAILY 11/21/23 11/21/23 Cyclobenzaprine [Flexeril] 10 mg PO DAILY PM PRN 11/21/23 11/21/23 Famotidine [Pepcid] 20 mg PO BID 11/21/23 11/21/23 [place] ER [Lithobid] 600 mg PO QD 11/21/23 11/21/23 Propranolol [Inderal] 10 mg PO BID 11/21/23 11/21/23 Risperidone [Risperdal] 0.5 mg PO HS 11/21/23 11/21/23 Topiramate [Topamax] 50 mg PO DAILY 11/21/23 11/21/23 Topiramate [Topamax] 75 mg PO HS 11/21/23 11/21/23 Verapamil ER [Calan SA] 180 mg PO DAILY PM 11/21/23 11/21/23 cloNIDine HCL [Clonidine HCl] 0.2 mg PO HS 11/21/23 11/21/23 - Allergies Allergies/Adverse Reactions: Allergies Allergy/AdvReac Type Severity Reaction Status Date / Time red dye Allergy Intermediate Left eye Verified 11/21/23 11:17 swelling adhesive tape AdvReac Mild Skin Verified 11/21/23 11:17 irritation Review of Systems - Constitutional Constitutional: reports: Other (A complete 10 point review of symptoms is otherwise negative except for that noted in HPI and PMH.) Exam - Vital Signs Vital Signs: Vital Signs x48h Temp Pulse Resp BP Pulse Ox 11/21/23 17:59 36.2 C L 66 14 104/68 94 11/21/23 16:06 63 16 140/96 H 97 11/21/23 13:53 60 16 110/85 H 97 11/21/23 11:18 36.1 C L 73 18 109/82 H 100 - Physical Exam Comments/Other: GEN: Patient appears somewhat uncomfortable, appears stated age, alert and oriented HEENT: NCAT, MMM, EOMI NEURO: CN II-XII grossly intact, no obvious focal deficits CV: RRR, no murmer appreciated PULM: CTAB, no wheezes appreciated ABD: soft, mildly distended, minimally tender diffusely, no rebound or guarding CIRCULATORY: no clubbing, cyanosis, or edema SKIN: no lesions appreciated LYMPH: no obvious lymphadenopathy MSK: 4/4 strength in all extremities PSYCH: Affect is appropriate Conclusion and Plan - Lab Results Laboratory Results 11/21/23 14:45: Urine Color YELLOW, Urine Clarity CLEAR, Urine pH 6.0, Ur Specific [place] <=1.005, Urine Protein NEGATIVE, Urine Glucose (UA) NEGATIVE, Urine Ketones NEGATIVE, Urine Occult Blood NEGATIVE, Urine Nitrite NEGATIVE, Urine Bilirubin NEGATIVE, Urine Urobilinogen 0.2 (NORMAL), Ur Leukocyte Esterase NEGATIVE, Ur Microscopic Review NOT INDICATED, Urine Culture Comments NOT INDICATED, Urine HCG, Qual NEGATIVE 11/21/23 11:44: Sodium 136, Potassium 3.9, Chloride 108, Carbon Dioxide 24, Anion Gap 4.0 L, BUN 11, Creatinine 0.9, Estimated GFR (MDRD) 69 L, Glucose 103, Calcium 10.1, Total Bilirubin 0.5, AST 53 H, ALT 60, Alkaline Phosphatase 50, Total Protein 6.6, Albumin 4.3, Globulin 2.3, Albumin/Globulin Ratio 1.9, Lipase 41 11/21/23 11:44: WBC 15.9 H, RBC 4.35, Hgb 14.9, Hct 45.2, MCV 103.9 H, MCH 34.3 H, MCHC 33.0, RDW 12.5, Plt Count 416, MPV 9.6, Neut # (Auto) 10.5 H, Lymph # (Auto) 3.7 H, [place] # (Auto) 1.3 H, Eos # (Auto) 0.3, Baso # (Auto) 0.1, Absolute Nucleated RBC 0.00, Nucleated RBC % 0.0 - Diagnostic Imaging Results Diagnostic Imaging Results: positive: Final report reviewed, Read independently Diagnostic Imaging Results Comments: The patient has a large ball of stool in her descending colon, with liquid stool and air-fluid levels proximal to this. She also has stool in her descending colon distal to the ball of stool.Her proximal colon is moderately distended.She has no signs of ischemia, or impending perforation. - Consultation Note Consultation Note: This is a 43-year-old female with: 1. Acute on chronic constipation -The patient states she has not had a bowel movement for approximately 2 weeks. She does have a large ball of stool in her descending colon on CT. The patient describes taking multiple different laxatives 1 or 2 times over the last many days. -I recommend the patient be started on an aggressive bowel regimen of MiraLAX p.o. enemas with either Colace, soapsuds, or mineral oil and every 4 hours bisacodyl suppositories. -Hopefully, these interventions will resolve the patient's obstipation. If they do not resolve her symptoms, hopefully they will allow for some clear to have distal stool. At this time, a colonoscopy is unlikely to be successful as she has a lot of stool in her colon distal to the large stool ball that likely would not be very amenable to colonoscopic intervention. -I also recommend obtaining the patient's recent colonoscopy report from her last colonoscopy within the last year, which the patient states was normal. With the report of a normal colonoscopy a year ago, no history of inflammatory bowel disease, I feel a stricture(as reported as a possible etiology on the CT report) is unlikely. -The patient has a benign abdomen with no emergent need for surgical intervention at this time. I plan to follow along in this patient's care. 2. depression, anxiety, PTSD, HTN - ok to continue home meds from surgery perspective - her polypharmacy is likely contributing signficantly to her chronic constipation. I recommend she be on a regimen of daily BID to TID miralax once her acute constipation is resolved.
[2023-11-21 19:17] LABS: LITHIUM 0.95 mmol/L
[2023-11-21] MEDS: polyethylene glycoL 3350 17 GM PACKET PO STA (19:20)
[2023-11-21] MEDS: DROPERIDOL 5 MG/2 ML VIAL IVP STA (19:46)
[2023-11-21] MEDS ORDERED: oxyCODONE 5 MG TABLET PO PRN (21:40)
[2023-11-21] MEDS ORDERED: SODIUM CHLORIDE FLUSH 0.9% 10 ML SYRINGE IVP PRN (21:40)
[2023-11-21] MEDS ORDERED: ONDANSETRON 4 MG/2 ML VIAL IVP PRN (21:40)
[2023-11-21] MEDS ORDERED: BISACODYL 10 MG SUPP PR PRN (21:48)
[2023-11-21] MEDS ORDERED: polyethylene glycoL 3350 17 GM PACKET PO PRN (21:49)
[2023-11-21] MEDS: LACTATED RINGERS 1,000 ML IV SCH (22:34)
[2023-11-21] MEDS: LITHIUM ER 300 MG TABLET PO SCH (22:34)
[2023-11-21] MEDS: VERAPAMIL ER 180 MG TABLET PO SCH (22:34)
[2023-11-21] MEDS: LACTULOSE 10 GM /15 ML UDC PO SCH (22:34)
--- NOTE | 2023-11-22 00:24 | HISTORY & PHYSICAL EXAMINATION ---
Chief Complaint - Chief Complaint Chief Complaint: constipation, little to no bm x 2 wk History of Present Illness - History of Present Illness HPI Comment/Other: pt s/p poppy about 7 wk ago and also with h/o intermittent constipation presents with decreased bm (little to none) x 2 wk, along with abd cramping, nausea, but no vomiting. she is taking multiple medicines. no fevers, chills, chest pain, sob. she denies any h/o obstruction. is taking multiple otc meds incuding suppositories without much relief. states having colonscopy in the past, r eportedly normal per her. 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 : reports: None HEENT: reports: None Psych: reports: Depression, Anxiety, Panic attacks Musculoskeletal: reports: None, Chronic back pain Derm: reports: None MRSA Hx?: Yes - Past Surgical History General: reports: Cholecystectomy, Appendectomy, Colonoscopy - POLST Patient has POLST: No Meds/Allgy - Home Medications Home Medications: Ambulatory Orders Medication Instructions Recorded Confirmed Fluticasone [Flonase] 1 sprays JOHN DAILY 02/18/14 11/21/23 Cetirizine [ZyrTEC] 10 mg PO DAILY 11/21/23 11/21/23 Cyclobenzaprine [Flexeril] 10 mg PO DAILY PM PRN 11/21/23 11/21/23 Famotidine [Pepcid] 20 mg PO BID 11/21/23 11/21/23 [place] ER [Lithobid] 600 mg PO QD 11/21/23 11/21/23 Propranolol [Inderal] 10 mg PO BID 11/21/23 11/21/23 Risperidone [Risperdal] 0.5 mg PO HS 11/21/23 11/21/23 Topiramate [Topamax] 50 mg PO DAILY 11/21/23 11/21/23 Topiramate [Topamax] 75 mg PO HS 11/21/23 11/21/23 Verapamil ER [Calan SA] 180 mg PO DAILY PM 11/21/23 11/21/23 cloNIDine HCL [Clonidine HCl] 0.2 mg PO HS 11/21/23 11/21/23 - Allergies Allergies/Adverse Reactions: Allergies Allergy/AdvReac Type Severity Reaction Status Date / Time red dye Allergy Intermediate Left eye Verified 11/21/23 11:17 swelling adhesive tape AdvReac Mild Skin Verified 11/21/23 11:17 irritation Review of Systems - Other Findings Other Findings: 14 pt review done with positives per hpi; all others reviewed as negative Exam - Vital Signs Vital Signs: Vital Signs x48h Temp Pulse Pulse Resp BP BP Pulse Ox 11/21/23 22:18 36.2 C L 67 16 131/84 H 99 11/21/23 21:00 68 18 125/88 H 98 11/21/23 19:12 76 16 97/70 99 11/21/23 17:59 36.2 C L 66 14 104/68 94 - Physical Exam Comments/Other: gen - aaox3, nad, polite heent - eomi, nc/at heart - per ed charting lungs - no resp distress noted, lung sounds per ed charting abd - cramping per pt msk - no acute trauma Conclusion/Plan - Lab Results Fish Bones: 11/21/23 11:44 11/21/23 11:44 - Other Other Results/Comments: pt with - - obstipation, obstruction with h/o chronic constipation passing flatus, and tolerating po no vomiting enema, suppository, po meds gen surg on case possible stricture (?) on CT imaging - abd cramping, nausea d/t above supportive mgmt zofran prn - polypharmacy including ccb's, all of which can contribute to above pt will need re-evaluation of meds as outpt, but continue for now f/u labs, clinical status, replete electrolytes further orders per clinical course
[2023-11-22] MEDS: SODIUM CHLORIDE FLUSH 0.9% 10 ML SYRINGE IVP SCH (01:27)
[2023-11-22] MEDS: ACETAMINOPHEN 325 MG TABLET PO PRN (01:41)
[2023-11-22] MEDS: KETOROLAC 15 MG/ML VIAL IVP STA (04:16)
[2023-11-22 07:55] VITALS: BP 136/80; O2SAT 97
[2023-11-22] MEDS: polyethylene glycoL 3350 17 GM PACKET PO SCH (08:03)
[2023-11-22] MEDS: FAMOTIDINE 20 MG TABLET PO SCH (08:30)
[2023-11-22] MEDS: TOPIRAMATE 25 MG TABLET PO SCH (08:30)
[2023-11-22] MEDS: LITHIUM ER 300 MG TABLET PO SCH (08:31)
[2023-11-22] MEDS: CALCIUM CARBONATE CHEW 500 MG TABLET PO SCH (08:31)
[2023-11-22] MEDS: PROPRANOLOL 10 MG TABLET PO SCH (08:33)
[2023-11-22] MEDS ORDERED: SOAP SUDS ENEMA 1 EACH RC SCH (09:00)
[2023-11-22] MEDS: SOAP SUDS ENEMA 1 EACH RC SCH (10:16)
--- NOTE | 2023-11-22 10:23 | PROVIDER PROGRESS NOTE ---
<PinaNhazbbnaif - Last Filed: 11/22/23 11:11> Subjective - Prog Note Date Prog Note Date: 11/22/23 - Subjective Pt reports feeling: Improved Subjective: Pt is a 43 y/o female s/p cholecystectomy who was admitted yesterday for obstruction with severe constipation. She has had Milarax which she states that stopped working for her in the past. She was given lactulose and enemas which she states had caused diarrhea and has a hard time making it to the bathroom. She has had chronic constiaption for 20+ years. She is currently taking [place]. Objective - Vital Signs/Intake & Output Reviewed Vital Signs: Yes Vital Signs: Vital Signs x48h Temp Pulse Resp BP Pulse Ox 11/22/23 07:44 36.3 C L 78 16 136/80 H 97 11/22/23 04:20 36.3 C L 83 18 118/80 96 Intake & Output: Intake & Output 11/19/23 11/20/23 11/21/23 11/22/23 23:59 23:59 23:59 23:59 Intake Total 3348.675 1040.667 Output Total 1 Balance 0807.976 9221.667 - Objective General Appearance: positive: No acute distress Eyes Bilateral: positive: Normal inspection, EOMI ENT: positive: No signs of dehydration Respiratory: positive: No respiratory distress Cardiovascular: positive: Regular rate & rhythm Abdomen: positive: Tenderness (Mild diffuse tenderness). negative: Guarding, Rebound Skin: positive: Color nml Neurologic/Psychiatric: positive: Oriented x3 - Lab Results Fish Bones: 11/21/23 11:44 11/21/23 11:44 Other Labs: Lab Results x24hrs 11/22/23 11/21/23 11/21/23 Range/Units 07:18 18:37 14:45 WBC (4.8-10.8) x10^3/uL RBC (4.20-5.40) 10^6/uL Hgb (12.0-16.0) g/dL Hct (37.0-47.0) % MCV (81.0-99.0) fL MCH (27.0-31.0) pg MCHC (32.0-36.0) g/dL RDW (12.0-15.0) % Plt Count (130-450) 10^3/uL MPV (7.9-10.8) fL Neut # (Auto) (1.5-6.6) 10^3/uL Lymph # (Auto) (1.5-3.5) 10^3/uL [place] # (Auto) (0.0-1.0) 10^3/uL Eos # (Auto) (0.0-0.7) 10^3/uL Baso # (Auto) (0.0-0.1) 10^3/uL Absolute Nucleated RBC x10^3/uL Nucleated RBC % /100WBC Sodium (135-145) mmol/L Potassium (3.5-4.5) mmol/L Chloride (101-111) mmol/L Carbon Dioxide (21-32) mmol/L Anion Gap (6-13) BUN (6-20) mg/dL Creatinine (0.6-1.3) mg/dL Estimated GFR (MDRD) (>89) Glucose (74-104) mg/dL Calcium (8.5-10.3) mg/dL Total Bilirubin (0.2-1.0) mg/dL AST (10-42) IU/L ALT (10-60) IU/L Alkaline Phosphatase (42-121) IU/L Total Protein (6.4-8.9) g/dL Albumin (3.2-5.5) g/dL Globulin (2.1-4.2) g/dL Albumin/Globulin Ratio (1.0-2.2) Lipase (11-82) U/L Urine Color YELLOW Urine Clarity CLEAR (CLEAR) Urine pH 6.0 (5.0-7.5) PH Ur Specific [place] <=1.005 (1.002-1.030) Urine Protein NEGATIVE (NEGATIVE) mg/dL Urine Glucose (UA) NEGATIVE (NEGATIVE) mg/dL Urine Ketones NEGATIVE (NEGATIVE) mg/dL Urine Occult Blood NEGATIVE (NEGATIVE) Urine Nitrite NEGATIVE (NEGATIVE) Urine Bilirubin NEGATIVE (NEGATIVE) Urine Urobilinogen 0.2 (NORMAL) (NORMAL) E.U./dL Ur Leukocyte Esterase NEGATIVE (NEGATIVE) Ur Microscopic Review NOT INDICATED Urine Culture Comments NOT INDICATED Urine HCG, Qual NEGATIVE Nasal Screen MRSA (PCR) NEGATIVE (NEGATIVE) Last Dose Date UNKNOWN Last Dose Time UNKNOWN [place] 0.95 mmol/L 11/21/23 11/21/23 Range/Units 11:44 11:44 WBC 15.9 H (4.8-10.8) x10^3/uL RBC 4.35 (4.20-5.40) 10^6/uL Hgb 14.9 (12.0-16.0) g/dL Hct 45.2 (37.0-47.0) % MCV 103.9 H (81.0-99.0) fL MCH 34.3 H (27.0-31.0) pg MCHC 33.0 (32.0-36.0) g/dL RDW 12.5 (12.0-15.0) % Plt Count 416 (130-450) 10^3/uL MPV 9.6 (7.9-10.8) fL Neut # (Auto) 10.5 H (1.5-6.6) 10^3/uL Lymph # (Auto) 3.7 H (1.5-3.5) 10^3/uL [place] # (Auto) 1.3 H (0.0-1.0) 10^3/uL Eos # (Auto) 0.3 (0.0-0.7) 10^3/uL Baso # (Auto) 0.1 (0.0-0.1) 10^3/uL Absolute Nucleated RBC 0.00 x10^3/uL Nucleated RBC % 0.0 /100WBC Sodium 136 (135-145) mmol/L Potassium 3.9 (3.5-4.5) mmol/L Chloride 108 (101-111) mmol/L Carbon Dioxide 24 (21-32) mmol/L Anion Gap 4.0 L (6-13) BUN 11 (6-20) mg/dL Creatinine 0.9 (0.6-1.3) mg/dL Estimated GFR (MDRD) 69 L (>89) Glucose 103 (74-104) mg/dL Calcium 10.1 (8.5-10.3) mg/dL Total Bilirubin 0.5 (0.2-1.0) mg/dL AST 53 H (10-42) IU/L ALT 60 (10-60) IU/L Alkaline Phosphatase 50 (42-121) IU/L Total Protein 6.6 (6.4-8.9) g/dL Albumin 4.3 (3.2-5.5) g/dL Globulin 2.3 (2.1-4.2) g/dL Albumin/Globulin Ratio 1.9 (1.0-2.2) Lipase 41 (11-82) U/L Urine Color Urine Clarity (CLEAR) Urine pH (5.0-7.5) PH Ur Specific [place] (1.002-1.030) Urine Protein (NEGATIVE) mg/dL Urine Glucose (UA) (NEGATIVE) mg/dL Urine Ketones (NEGATIVE) mg/dL Urine Occult Blood (NEGATIVE) Urine Nitrite (NEGATIVE) Urine Bilirubin (NEGATIVE) Urine Urobilinogen (NORMAL) E.U./dL Ur Leukocyte Esterase (NEGATIVE) Ur Microscopic Review Urine Culture Comments Urine HCG, Qual Nasal Screen MRSA (PCR) (NEGATIVE) Last Dose Date Last Dose Time [place] mmol/L Assessment/Plan - Problem List (1) Constipation Impression: 1 view abdominal x-ray scheduled for patient. She is passing stools and the plan is to discharge today and continue Miralax BID at home. Qualifiers: Constipation type: unspecified constipation type Qualified Code(s): K59.00 - Constipation, unspecified <Shobha Cyr - Last Filed: 11/22/23 18:10> Objective - Vital Signs/Intake & Output Intake & Output: Intake & Output 11/19/23 11/20/23 11/21/23 11/22/23 23:59 23:59 23:59 23:59 Intake Total 0967.255 1261.667 Output Total 1 Balance 7197.867 4796.667 - Lab Results Fish Bones: 11/21/23 11:44 11/21/23 11:44 Other Labs: Lab Results x24hrs 11/22/23 11/21/23 Range/Units 07:18 18:37 Nasal Screen MRSA (PCR) NEGATIVE (NEGATIVE) Last Dose Date UNKNOWN Last Dose Time UNKNOWN [place] 0.95 mmol/L
--- NOTE | 2023-11-22 10:51 | PROVIDER PROGRESS NOTE ---
Subjective - General Admit Date: 11/21/23 - Other Other Information/Narrative: Patient reports abdominal pain is markedly improved after several bowel movements, two hard, and several loose overnight and this morning. Denies n/v, tolerated regular diet last night. No f/c. She would like to go home today. Objective - Patient Data Vital Signs: Vital Signs x48h Temp Pulse Resp BP Pulse Ox 11/22/23 07:44 36.3 C L 78 16 136/80 H 97 11/22/23 04:20 36.3 C L 83 18 118/80 96 Weight: Weight 11/20/23 11/21/23 11/22/23 23:59 23:59 23:59 Weight (kg) 64.864 kg Intake & Output: Intake and Output Totals x24h 11/20/23 11/21/23 11/22/23 23:59 23:59 23:59 Intake Total 0473.311 0804.667 Output Total 1 Balance 4585.831 7073.667 - Lab Results Lab Results: 11/21/23 11:44 11/21/23 11:44 Other Lab Results: Lab Results x24hrs 11/22/23 11/21/23 11/21/23 Range/Units 07:18 18:37 14:45 WBC (4.8-10.8) x10^3/uL RBC (4.20-5.40) 10^6/uL Hgb (12.0-16.0) g/dL Hct (37.0-47.0) % MCV (81.0-99.0) fL MCH (27.0-31.0) pg MCHC (32.0-36.0) g/dL RDW (12.0-15.0) % Plt Count (130-450) 10^3/uL MPV (7.9-10.8) fL Neut # (Auto) (1.5-6.6) 10^3/uL Lymph # (Auto) (1.5-3.5) 10^3/uL [place] # (Auto) (0.0-1.0) 10^3/uL Eos # (Auto) (0.0-0.7) 10^3/uL Baso # (Auto) (0.0-0.1) 10^3/uL Absolute Nucleated RBC x10^3/uL Nucleated RBC % /100WBC Sodium (135-145) mmol/L Potassium (3.5-4.5) mmol/L Chloride (101-111) mmol/L Carbon Dioxide (21-32) mmol/L Anion Gap (6-13) BUN (6-20) mg/dL Creatinine (0.6-1.3) mg/dL Estimated GFR (MDRD) (>89) Glucose (74-104) mg/dL Calcium (8.5-10.3) mg/dL Total Bilirubin (0.2-1.0) mg/dL AST (10-42) IU/L ALT (10-60) IU/L Alkaline Phosphatase (42-121) IU/L Total Protein (6.4-8.9) g/dL Albumin (3.2-5.5) g/dL Globulin (2.1-4.2) g/dL Albumin/Globulin Ratio (1.0-2.2) Lipase (11-82) U/L Urine Color YELLOW Urine Clarity CLEAR (CLEAR) Urine pH 6.0 (5.0-7.5) PH Ur Specific [place] <=1.005 (1.002-1.030) Urine Protein NEGATIVE (NEGATIVE) mg/dL Urine Glucose (UA) NEGATIVE (NEGATIVE) mg/dL Urine Ketones NEGATIVE (NEGATIVE) mg/dL Urine Occult Blood NEGATIVE (NEGATIVE) Urine Nitrite NEGATIVE (NEGATIVE) Urine Bilirubin NEGATIVE (NEGATIVE) Urine Urobilinogen 0.2 (NORMAL) (NORMAL) E.U./dL Ur Leukocyte Esterase NEGATIVE (NEGATIVE) Ur Microscopic Review NOT INDICATED Urine Culture Comments NOT INDICATED Urine HCG, Qual NEGATIVE Nasal Screen MRSA (PCR) NEGATIVE (NEGATIVE) Last Dose Date UNKNOWN Last Dose Time UNKNOWN [place] 0.95 mmol/L 11/21/23 11/21/23 Range/Units 11:44 11:44 WBC 15.9 H (4.8-10.8) x10^3/uL RBC 4.35 (4.20-5.40) 10^6/uL Hgb 14.9 (12.0-16.0) g/dL Hct 45.2 (37.0-47.0) % MCV 103.9 H (81.0-99.0) fL MCH 34.3 H (27.0-31.0) pg MCHC 33.0 (32.0-36.0) g/dL RDW 12.5 (12.0-15.0) % Plt Count 416 (130-450) 10^3/uL MPV 9.6 (7.9-10.8) fL Neut # (Auto) 10.5 H (1.5-6.6) 10^3/uL Lymph # (Auto) 3.7 H (1.5-3.5) 10^3/uL [place] # (Auto) 1.3 H (0.0-1.0) 10^3/uL Eos # (Auto) 0.3 (0.0-0.7) 10^3/uL Baso # (Auto) 0.1 (0.0-0.1) 10^3/uL Absolute Nucleated RBC 0.00 x10^3/uL Nucleated RBC % 0.0 /100WBC Sodium 136 (135-145) mmol/L Potassium 3.9 (3.5-4.5) mmol/L Chloride 108 (101-111) mmol/L Carbon Dioxide 24 (21-32) mmol/L Anion Gap 4.0 L (6-13) BUN 11 (6-20) mg/dL Creatinine 0.9 (0.6-1.3) mg/dL Estimated GFR (MDRD) 69 L (>89) Glucose 103 (74-104) mg/dL Calcium 10.1 (8.5-10.3) mg/dL Total Bilirubin 0.5 (0.2-1.0) mg/dL AST 53 H (10-42) IU/L ALT 60 (10-60) IU/L Alkaline Phosphatase 50 (42-121) IU/L Total Protein 6.6 (6.4-8.9) g/dL Albumin 4.3 (3.2-5.5) g/dL Globulin 2.3 (2.1-4.2) g/dL Albumin/Globulin Ratio 1.9 (1.0-2.2) Lipase 41 (11-82) U/L Urine Color Urine Clarity (CLEAR) Urine pH (5.0-7.5) PH Ur Specific [place] (1.002-1.030) Urine Protein (NEGATIVE) mg/dL Urine Glucose (UA) (NEGATIVE) mg/dL Urine Ketones (NEGATIVE) mg/dL Urine Occult Blood (NEGATIVE) Urine Nitrite (NEGATIVE) Urine Bilirubin (NEGATIVE) Urine Urobilinogen (NORMAL) E.U./dL Ur Leukocyte Esterase (NEGATIVE) Ur Microscopic Review Urine Culture Comments Urine HCG, Qual Nasal Screen MRSA (PCR) (NEGATIVE) Last Dose Date Last Dose Time [place] mmol/L - Current Medications Current Medications: Current Medications Generic Name Dose Route Start Last Admin Trade Name Freq PRN Reason Stop Dose Admin Acetaminophen 650 mg 11/21/23 21:40 11/22/23 01:41 Acetaminophen 325 Mg Tablet PO 650 mg Q6H PRN Administration Pain 1 to 4, or Fever Calcium Carbonate/Glycine 500 mg 11/22/23 09:00 11/22/23 08:31 Calcium Carbonate Chew 500 Mg Tablet PO 500 mg BID ROGERS Administration Famotidine 20 mg 11/22/23 09:00 11/22/23 08:30 Famotidine 20 Mg Tablet PO 20 mg BID ROGERS Administration Lactated Ringer's 1,000 mls @ 100 mls/hr 11/21/23 22:00 11/22/23 08:31 Lr IV Not Given .Q10H ROGERS Lactulose 10 gm 11/21/23 22:00 11/22/23 07:15 Lactulose 10 Gm /15 Ml Udc PO 10 gm TID ROGERS Administration [place] Carbonate 600 mg 11/22/23 08:10 11/22/23 08:31 [place] Er 300 Mg Tablet PO 600 mg DAILY ROGERS Administration Polyethylene Glycol 34 gm 11/22/23 08:00 11/22/23 08:03 Polyethylene Glycol 3350 17 Gm Packet PO 34 gm TIDWM ROGERS Administration Propranolol HCl 10 mg 11/22/23 09:00 11/22/23 08:33 Propranolol 10 Mg Tablet PO 10 mg BID ROGERS Administration Soap Free Cleanser 1 each 11/22/23 08:00 11/22/23 10:16 Soap Suds Enema 1 Each RC Not Given Q6H ROGERS Sodium Chloride 10 ml 11/22/23 01:00 11/22/23 09:41 Sodium Chloride Flush 0.9% 10 Ml Syringe IVP Not Given 0100,0900,1700 ROGERS Topiramate 50 mg 11/22/23 09:00 11/22/23 08:30 Topiramate 25 Mg Tablet PO 50 mg DAILY ROGERS Administration Verapamil HCl 180 mg 11/21/23 22:00 11/21/23 22:34 Verapamil Er 180 Mg Tablet PO Not Given HS ROGERS - Physical Exam Comments/Other: Gen: NAD, alert and oriented CV: rrr Pulm: non labored, on RA Abd: soft, NT, ND, no r/g Ext: no c/c/e Impression/Plan - Problem List Problem List: This is a 43-year-old female with: 1. Acute on chronic constipation, resolving - multiple BM's overnight/this AM - will get KUB this AM to confirm passage of stool ball - if colon clear, ok to de-escalate bowel regimen (stop enemas, suppositories). I recommend keeping Miralax starting at two doses per day and titrating for a goal of 1-2, soft but formed BM's per day. -prior CE records still unavailable at this time (done at [facility], per patient) -The patient has a benign abdomen with no emergent need for surgical intervention at this time. I plan to follow along in this patient's care. 2. depression, anxiety, PTSD, HTN - ok to continue home meds from surgery perspective - her polypharmacy is likely contributing significantly to her chronic constipation. Once colon clear, patient tolerating diet, ok to discharge from surgery standpoint.
--- NOTE | 2023-11-22 11:52 | XRAY Report ---
PROCEDURE: Abdomen 1 V INDICATIONS: h/o stool ball in desc colon, eval for clearance TECHNIQUE: One view of the abdomen acquired. COMPARISON: CT abdomen and pelvis dated 11/21/2023. FINDINGS: Surgical changes and devices: None. Bowel: Bowel gas pattern is normal. The previous stool ball in the descending colon clearly seen on the CT is likely no longer present. The area of narrowing of the descending colon is identifiable on these images. Proximal to the area of descending colon stenosis and previous stool ball, the colon n ow appears improved in caliber. Soft tissues: No suspicious abdominal calcifications. Visualized solid organ contours appear normal in size. Bones: No suspicious bony lesions. IMPRESSION: 1. Plain films suggest the stool ball has likely passed. There is a probable area of stricture in the descending colon. The proximal colon appears somewhat improved in caliber. Reviewed by: Owen Rivera MD on 11/22/2023 11:50 AM PDT Approved by: Owen Rivera MD on 11/22/2023 11:50 AM PDT Station ID: [id number]
--- NOTE | 2023-11-22 12:04 | PHARMACY PROGRESS NOTE ---
- Best Possible Medication History Admit Date and Time: 11/21/232140 Processed by: Pharmacy Medications reviewed in ED?: No Medication History completed: Yes Patient Interview: Completed Secondary Source(s): Insurance records As the person ultimately responsible for medication therapy, providers are able to order a medication from an existing home medication list in [facility] via the "Reconcile Routine" prior to Confirmation of that medication by software support specialist. Such practice is discouraged except when the physician, in their clinical judgment, deems that a medical need exists for a medication without regard to previous use.
[2023-11-22] MEDS: BISACODYL 10 MG SUPP PR SCH (12:08)
--- NOTE | 2023-11-22 12:10 | Discharge Plan ---
Discharge Plan Problem Reviewed?: Yes Disposition: Home, Self Care Condition: Good Prescriptions: Bisacodyl Supp [Dulcolax Supp] 10 mg IA DAILY #30 supp polyethylene glycoL 3350 [Miralax] 17 gm PO BID PRN #60 packet PRN Reason: Constipation Diet: Regular (high fiber) Activity Restrictions: No Restrictions Shower Restrictions: No Driving Restrictions: No Instruction Topics: Constipation, Diet High Fiber Dc Health Concerns: You came into the hospital because your constipation had gotten terribly out of control. We were able overnight to titrate medications and relieve your constipation. Your x-ray before discharge looks good. I would definitely recommend that you follow-up with your mechanical engineering director at [facility] for further evaluation and treatment. I understand that your constipation has been lifelong and sympathize with you on this problem. I am sorry you went through this. We would recommend that you start taking MiraLAX twice a day. It is inert and just sits in your colon pulling water with it and pulling the stool along. The goal would be to have 1-2 bowel movements a day which are soft and you need to titrate the MiraLAX to dosing to this. All that being said I know you have been dealing with your constipation for a long time and you are probably the expert on it. Make sure you drink plenty of water especially as the temperatures are warmer and stay well-hydrated as this can affect how you move your bowels. We wish you well so Plan of Treatment: Miralax. this is a good medication that can help you move your bowels. Additional Instructions or Follow Up instructions: your GI doctor at [facility]. No Smoking: If you smoke, Please STOP! Call for help.
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
[2023-11-22] MEDS ORDERED: risperiDONE 1 MG TABLET PO SCH (21:00)
[2023-11-22] MEDS ORDERED: TOPIRAMATE 25 MG TABLET PO SCH (21:00)
== END 2023-11-22 13:03 | disposition home or self-care (01) ==
LOC: ED 10:53 → MS2 21:41
PROVIDERS: ADMIT Student in an Organized Health Care Education/Training Program; ATTEND Physician Assistant Medical
DX: K58.1 Irritable bowel syndrome with constipation (principal); G43.909 Migraine, unspecified, not intractable, without status migrainosus; F41.9 Anxiety disorder, unspecified; F41.0 Panic disorder [episodic paroxysmal anxiety]; Z79.899 Other long term (current) drug therapy; K21.9 Gastro-esophageal reflux disease without esophagitis; Z90.49 Acquired absence of other specified parts of digestive tract; F32.A Depression, unspecified; F43.10 Post-traumatic stress disorder, unspecified
CPT/HCPCS: 36415; 74018; 74177; 80053; 80178; 81003; 81025; 83690; 85025; 87640; 96374; 96375; 96376; 99284; 99285; A9270; G0378; J1170; J7120; Q9967; 81001; 87086

== ENCOUNTER 2024-01-03 11:08 | Outpatient (CLI) | payer MEDICAID ==
[2024-01-03 19:17] LABS: FERRITIN 269.9 ng/mL (11.0-306.8)
== END 2024-01-03 11:09 | disposition home or self-care (01) ==
LOC: LAB.N 11:08
PROVIDERS: ATTEND Nurse Practitioner
DX: Z51.81 Encounter for therapeutic drug level monitoring (principal); E55.9 Vitamin D deficiency, unspecified; Z79.899 Other long term (current) drug therapy
CPT/HCPCS: 36415; 82306; 82728; 83540; 84466